=== PATIENT | female | born 1975 | race Caucasian/White ===

== ENCOUNTER 2017-04-30 12:14 | Emergency (ER) | payer OTHER ==
[2017-04-30 12:19] VITALS: BP 122/74; PULSE 74; TEMP 98.5; BMI 21.3
--- NOTE | 2017-04-30 12:46 | PDOC ---
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 Since that time has progressively worsened, unresolved with Tylenol, and came for evaluation. Denies numbness or tingling to feet, denies any nausea vomiting diarrhea or constipation. No dysuria. Occurred: reports: last week Severity: reports: mild, moderate Pain Location: reports: back Modifying Factors: improves with: None Loss of Consciousness: no loss of consciousness Past History - Travel Traveled outside of the country in the last 30 days: No Close contact w/someone who was outside of country & ill: No - Past Medical History Allergies/Adverse Reactions: Allergies Allergy/AdvReac Type Severity Reaction Status Date / Time pineapple [Pineapple] Allergy Swelling Verified 04/30/17 12:19 BROCCOLI Allergy Swelling Uncoded 04/30/17 12:19 SHRIMP Allergy Swelling Uncoded 04/30/17 12:19 Home Medications: Ambulatory Orders Cyclobenzaprine HCl [Flexeril 10 mg] 10 mg PO BID PRN #14 tablet 04/30/17 Anemia: No Asthma: No - Surgical History Appendectomy: Yes - Psycho/Social/Smoking Cessation Hx Anxiety: No Suicidal Ideation: No Smoking History: Never smoked Hx Alcohol Use: No Drug/Substance Use Hx: No Substance Use Type: None Review of Systems - Review of Systems Able to Perform ROS?: Yes Is the patient limited Faroese proficient: Yes Constitutional: Yes: Symptoms Reported, See HPI, Loss of Appetite. No: Malaise Musculoskeletal: Yes: Symptoms Reported, See HPI, Back Pain, Muscle Weakness Integumentary: No: Symptoms Reported All Other Systems: Reviewed and Negative *Physical Exam - Vital Signs Last Vital Signs Temp Pulse Resp BP Pulse Ox 98.5 F 74 20 122/74 100 04/30/17 12:16 04/30/17 12:16 04/30/17 12:16 04/30/17 12:16 04/30/17 12:16 - Physical Exam General Appearance: Yes: Nourished, Appropriately Dressed, Apparent Distress HEENT: positive: AISHWARYA, Normal ENT Inspection, TMs Normal, Pharynx Normal Neck: positive: Supple. negative: Lymphadenopathy (R), Lymphadenopathy (L) Respiratory/Chest: positive: Lungs Clear Gastrointestinal/Abdominal: positive: Soft. negative: Tender Musculoskeletal: positive: Normal Inspection, Muscle Spasm (palpable spasm noted to the left paravertebral spinous muscles, worse in the lower rhomboids and upper latissimus dorsi muscles. Has no to bone tenderness, range of motion limited secondary to the spasm.) Extremity: positive: Normal Capillary Refill, Normal Inspection, Normal Range of Motion Integumentary: positive: Normal Color, Dry, Warm, Pale. negative: Swelling, Bruising Neurologic: positive: medical care administrator II-XII NML intact, Fully Oriented, Alert, Normal Mood/ Affect, Normal Response, Motor Strength /5 Progress Note - Progress Note Progress Note: Back spasm, will treat with NSAIDs and cyclobenzaprine *DC/Admit/Observation/Transfer Diagnosis at time of Disposition: Spasm of back muscles - Discharge Dispostion Disposition: HOME Condition at time of disposition: Stable Admit: No - Patient Instructions Printed Discharge Instructions: DI for Back Spasm Additional Instructions: Rest, no heavy lifting or exercise until pain is resolved Hot soaks to neck and low back as often as possible/hot showers or Jacuzzis No massage or therapy until spasm is gone Continue ibuprofen 2-200 mg tablets every 6 hours for the next 3 days then as needed for pain and swelling Cyclobenzaprine 1-10mg every 8 hours as needed for spasm If not significant improvement within 24 hours with medication and rest regime, followup with private physician for change in medications and /or therapy. - Post Discharge Activity Work/School Note: Back to Work
[2017-04-30] MEDS ORDERED: CYCLOBENZAPRINE HCL 10 MG TABLET (FP) PO ONE (13:02)
[2017-04-30] MEDS ORDERED: KETOROLAC TROMETHAMINE 60 MG/2 ML VIAL IM ONE (13:02)
[2017-04-30] MEDS ORDERED: KETOROLAC TROMETHAMINE 60 MG/2 ML VIAL ONE (13:03)
[2017-04-30] MEDS ORDERED: CYCLOBENZAPRINE HCL 10 MG TABLET (FP) ONE (13:03)
== END 2017-04-30 13:25 | disposition home or self-care (01) ==
LOC: JERFT 12:14
PROC: 3E0233Z Introduction of Anti-inflammatory into Muscle, Percutaneous Approach (ICD-10-PCS; principal; 2017-04-30)
DX: M62.830 Muscle spasm of back (principal); X50.0XXA Overexertion from strenuous movement or load, initial encounter; Y93.E2 Activity, laundry; Y92.59 Other trade areas as the place of occurrence of the external cause; Y99.0 Civilian activity done for income or pay
CPT/HCPCS: 96372; 99281-25

== ENCOUNTER 2018-07-20 19:46 | Emergency (ER) | payer OTHER ==
[2018-07-20 19:49] VITALS: BP 128/85; PULSE 82; TEMP 98.2; BMI 22.6
[2018-07-20] MEDS ORDERED: KETOROLAC TROMETHAMINE 30 MG/1 ML VIAL IM ONE (19:49)
--- NOTE | 2018-07-20 19:49 | PDOC ---
Rapid Medical Evaluation Time Seen by Provider: 07/20/18 19:47 Medical Evaluation: Allergies Allergy/AdvReac Type Severity Reaction Status Date / Time pineapple [Pineapple] Allergy Swelling Verified 04/30/17 12:19 BROCCOLI Allergy Swelling Uncoded 04/30/17 12:19 SHRIMP Allergy Swelling Uncoded 04/30/17 12:19 07/20/18 19:47 I have performed a brief in-person evaluation of this patient. The patient presents with a chief complaint of: back pain x 5-6 days. 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
--- NOTE | 2018-07-20 20:20 | PDOC ---
History of Present Illness - General Chief Complaint: Back Pain Stated Complaint: BACK PAIN Time Seen by Provider: 07/20/18 19:47 History Source: Patient, Old Records Exam Limitations: No Limitations - History of Present Illness Initial Comments: 07/20/18 20:20 CHIEF COMPLAINT: Lower back pain HISTORY OF PRESENT ILLNESS:This is a 42-year-old woman without significant medical history who presents to the emergency department with lower back pain for the past 7 days. Patient works as a freight loading supervisor and noted sudden onset lower back pain went pulling on a laundry cart. Patient has been taking over-the -counter Tylenol with minimal relief of symptoms. Pain is generalized lower back and nonradiating. Patient denies incontinence of bladder or bowel, urinary retention, saddle anesthesia, numbness or tingling. REVIEW OF SYSTEMS: GENERAL: Afebrile, denies any weakness RESPIRATORY: No cough, wheezing, or hemoptysis. CARDIAC: No chest pain or shortness of breath MUSCULOSKELETAL: Pain to generalized lower back. No point tenderness. SKIN : No erythema, no bruising, no deformity. GI/: Denies any abdominal pain, no urinary difficulty, incontinence or urinary retention. RECTAL: Denies any difficulty this A.m. NEUROLOGICAL: Denies any numbness or tingling. No neurosensory deficits. PHYSICAL EXAM: GENERAL: The patient is awake, alert, and fully oriented, in no acute distress. RESPIRATORY: Lungs clear bilaterally, no rhonchi wheezes or crackles CARDIAC: S1-S2 audible, no murmur rub or gallop MUSCULOSKELETAL: Pain to generalized lower back, nonradiating, no tingling or sensory deficit. Less than 2 second cap refill, +2 pedal pulses. GI/: Abdomen soft, nontender, nondistended. No rebound tenderness. No masses palpable. MUSCULOSKELETAL: No spinal point tenderness. Normal reflexive and no deficits to sensation or strength. RECTAL: Deferred. patient with no neurological findings SKIN: Warm, Dry, normal turgor, no erythema, no edema no bruising. Past History - Past Medical History Allergies/Adverse Reactions: Allergies Allergy/AdvReac Type Severity Reaction Status Date / Time pineapple [Pineapple] Allergy Swelling Verified 07/20/18 19:49 BROCCOLI Allergy Swelling Uncoded 07/20/18 19:49 SHRIMP Allergy Swelling Uncoded 07/20/18 19:49 Home Medications: Ambulatory Orders Methocarbamol [Robaxin -] 1,500 mg PO Q8H PRN #30 tablet 07/20/18 Anemia: No Asthma: No COPD: No - Surgical History Appendectomy: Yes - Suicide/Smoking/Psychosocial Hx Smoking History: Never smoked Hx Alcohol Use: No Drug/Substance Use Hx: No Substance Use Type: None *Physical Exam - Vital Signs Last Vital Signs Temp Pulse Resp BP Pulse Ox 98.2 F 82 18 128/85 100 07/20/18 19:47 07/20/18 19:47 07/20/18 19:47 07/20/18 19:47 07/20/18 19:47 Medical Decision Making - Medical Decision Making 07/20/18 20:30 A/P: 42-year-old female who denies significant medical history with 1 week of atraumatic lower back pain Full range of motion of the lumbar spine No point tenderness along the vertebrae No palpable muscle spasms noted in the paraspinous muscles Full sensation noted distal to pain Ambulatory with steady gait Most likely muscle strain of the lower back Urine , Toradol, reassess 07/20/18 21:05 Patient reports back pain is improved is currently 3/10 in states is tolerable. I will discharge the patient home to follow-up with her primary doctor and given a prescription for Robaxin to take PRN if naproxen is not effective for pain relief. *DC/Admit/Observation/Transfer Diagnosis at time of Disposition: Lower back pain Qualifiers: Chronicity: acute Back pain laterality: midline Sciatica presence: without sciatica Qualified Code(s): M54.5 - Low back pain - Discharge Dispostion Disposition: HOME Condition at time of disposition: Stable Decision to Admit order: No - Prescriptions Prescriptions: Methocarbamol [Robaxin -] 1,500 mg PO Q8H PRN #30 tablet PRN Reason: Back Pain - Referrals Referrals: Eliceo Padilla MD [Staff Physician] - - Patient Instructions Additional Instructions: Rest, no heavy lifting or exercise until pain is resolved Hot soaks to neck and low back as often as possible/hot showers or Jacuzzis No massage or therapy until spasm is gone Continue ibuprofen 2-200 mg tablets every 6 hours for the next 3 days then as needed for pain and swelling Robaxin 1500mg every 8 hours as needed for spasm If not significant improvement within 24 hours with medication and rest regime, followup with private physician for change in medications and /or therapy. - Post Discharge Activity Forms/Work/School Notes: Back to Work
[2018-07-20] MEDS ORDERED: KETOROLAC TROMETHAMINE 30 MG/1 ML VIAL ONE (20:46)
== END 2018-07-20 21:09 | disposition home or self-care (01) ==
LOC: JERFT 19:46
PROC: 3E0233Z Introduction of Anti-inflammatory into Muscle, Percutaneous Approach (ICD-10-PCS; principal; 2018-07-20)
DX: M54.5 Low back pain (principal)
CPT/HCPCS: 84703; 99281-25

== ENCOUNTER 2022-10-13 09:54 | Emergency (ER) | payer OTHER ==
[2022-10-13 10:14] VITALS: BP 136/67; PULSE 70; RESP 18; TEMP 98; BMI 20.7
== END 2022-10-13 11:34 | disposition home or self-care (01) ==
LOC: JER 09:54
DX: U07.1 COVID-19 (principal)
CPT/HCPCS: 0241U-QW; 99283-25